=== PATIENT | male | born 1970 | race Caucasian/White ===

== ENCOUNTER 2016-12-09 12:01 | Emergency (ER) | payer OTHER ==
[~2016-12-09] VITALS: Ht 180.3 cm; Wt 79.9 kg
[2016-12-09] MEDS ORDERED: MOBIC7.5 MG PO (13:35)
[2016-12-09] MEDS ORDERED: PERCOCET 5/31 TABLET PO (13:35)
[2016-12-09 14:00] VITALS: BP 160/98
== END 2016-12-09 14:01 | disposition home or self-care (01) ==
LOC: EME 12:01
DX: M16.12 Unilateral primary osteoarthritis, left hip (principal); F17.200 Nicotine dependence, unspecified, uncomplicated
CPT/HCPCS: 73502; 99281; 99284